=== PATIENT | male | born 2005 | race Caucasian/White ===

== ENCOUNTER 2025-07-01 12:35 | Outpatient (OUT) | payer BC, SELFPAY ==
--- OUTSIDE RECORDS SUMMARY | 2025-06-17 10:40 | XMS_ITS | Encounter Summary ---
Author Organization [facility] Address [address] [facility] [place] [address] Care Team Providers Care Chemical Production Machine Operator Name Role Phone Darron Morse MD Primary Care Provider [phone] Reason for Referral * Imaging (Routine) - AuthorizedSpecialtyDiagnoses / ProceduresReferred By ContactReferred To [facility] Hospital Diagnoses Left upper quadrant abdominal swelling, mass and lump Procedures CT abdomen pelvis wo IV contrast Luz Maria Clements PA [address] [place] [address] Phone: tel: fax: [facility] Centralized Scheduling [address] [place] [address] Phone: tel: fax: Referral IDStatusReasonStart DateExpiration DateVisits RequestedVisits [id number]/6/20255/ Reason for Visit * ReasonCommentsSinus ProblemSinuses stuffy for about a month.Sleep StudyMassOn chest Encounter Details DateTypeDepartmentCare Team (Latest Contact Info)Osubfldxqgg14/06/2025 10:40 AM ESTOffice Visit [facility] [address] [place] [address] Luz Maria Clements PA [address] [place] [address] Left upper quadrant abdominal swelling, mass and lump (Primary Dx); Acute non-recurrent frontal sinusitis; Sleep apnea in adult; Acute frontal sinusitis, recurrence not specified Social History Tobacco UseTypesPacks/DayYears UsedDateSmoking Tobacco: NeverSmokeless Tobacco: NeverAlcohol UseStandard Drinks/WeekCommentsNever0 (1 standard drink = 0.6 oz pure alcohol)Sex and Gender InformationValueDate RecordedSex Assigned at Not on fileLegal WfvVdbf0410/24/2022 7:17 PM EDTGender IdentityNot on fileSexual OrientationNot on filedocumented as of this encounter Last Filed Vital Signs Vital SignReadingTime TakenCommentsBlood Zaiwwhhb189/8411 10:44 AM EST Frsoq1401/06/2025 10:44 AM KHIDzsclatrbmz87.8 ??C (98.2 ??F)06/17/2025 10:44 AM ESTRespiratory Rate--Oxygen Onbswcculr49%06/17/2025 10:44 AM ESTInhaled Oxygen Concentration--Mvzdpv750 kg (265 lb 6.4 oz)06/17/2025 10:44 AM CSWCavhgm363.3 cm (5' 11 )06/17/2025 10:44 AM ESTBody Mass Index37.02108/17/2024 10:44 AM EST documented in this encounter Progress Notes * NOELLE Cole - 06/17/2025 10:40 AM EST Images from the original note were not included. Suleiman Gregory is a 20 y.o. male presents with chief complaint of Sinus Problem (Sinuses stuffy for about a month. ), Sleep Study, and Mass (On chest) HPI: History of Present Illness The patient is a 20-year-old male who presents for evaluation of a sinus infection, follow-up on sleep apnea, and a mass. He has been experiencing symptoms of a sinus infection for approximately 1.5 months. These symptomsinclude nasal congestion and puffiness around the eyes, particularly noticeable in the morning and towards the end of the day. He has attempted to manage these symptoms with Claritin, but it has proven ineffective. He recalls that a previous treatment for a similar condition was highly effective, resolving his symptoms by the third day. He also notes that these symptoms tend to recur around the same time each year, typically in the spring. He has observed a mass under his skin for some time now. Initially, neither his sister nor his girlfriend noticed any difference, but they eventually confirmed the presence of the mass. He is uncertain if it is merely an air pocket. He did not observe this mass during his teenage years. The mass isnot associated with any pain. A referral for a sleep study was placed in 10/2024, but he has not yet received a call from the sleep lab. Occupation: Works at [employer] His sister had a lipoma that turned into another condition. MEDICATIONS: Current Outpatient Medications Medication Instructions azithromycin (Zithromax) 250 MG tablet Take 2 tabs PO x 1 day then 1 tab PO daily x 4 days methylPREDNISolone (Medrol Dospak) 4 MG tablets Follow schedule on package instructions ALLERGIES: Allergies[1] Review of Systems General: Denies fever, chills, fatigue, FOX or weight loss/gain CV: Denies CP, palpitations or swelling in legs Resp: denies cough, SOB or wheezing GI: Denies abd pain/n/v/c/d Skin: Denies rash Neuro: Denies LH or dizziness Medical, Surgical, Family, and Social History reviewed. OBJECTIVE: Visit Vitals BP 128/84 (BP Location: Right arm, Patient Position: Sitting, BP Cuff Size: Large adult) Pulse 90 Temp 98.2 ??F (Temporal) Ht 5' 11 Wt 265 lb 6.4 oz SpO2 99% BMI 37.02 kg/m?? Smoking Status Never BSA 2.45 m?? BP Readings from Last 3 Encounters: 06/17/25 128/84 11/02/24 128/84 Wt Readings from Last 3 Encounters: 06/17/25 265 lb 6.4 oz 11/02/24 236 lb 9.6 oz 06/06/21 234 lb 12.8 oz (>99%, Z= 2.35)* * Growth percentiles are based on CDC (Boys, 2-20 Years) data. Physical Exam Physical Exam Respiratory: Clear to auscultation, no wheezing, rales or rhonchi Cardiovascular: Regular rate and rhythm, no murmurs, rubs, or gallops General: alert & oriented, NAD Head: NC/AT Oral Cavity: MMM Skin: warm, dry Heart: RRR, No m/r/g, S1S2 nml Lungs: CTA b/l Abdomen: soft, ND/NT, BS wnl Musculoskeletal: normal gait Extremities: no clubbing, cyanosis or edema Neurological: nonfocal Psych: mood/affect full range Results ASSESSMENT AND PLAN: Assessment & Plan 1. Sinus infection: - He has been experiencing sinus congestion and puffy eyes for about a month and a half. - Previous treatment with a steroid pack and antibiotic was effective. - A prescription for a steroid pack and an antibiotic will be sent to the pharmacy. 2. Mass: - A soft, non-painful mass has been noted under his skin. - A CAT scan will be ordered at [facility] to further investigate the nature of the mass. - He will be notified of the results once available. 3. Sleep apnea: - A referral for a sleep study was placed in 10/2024, but he has not yet received a call from the sleep lab. - The office will follow up on this referral. - If he does not hear anything within a week, he should call the office. Assessment/Plan Problem List Items Addressed This Visit Acute frontal sinusitis Relevant Medications azithromycin (Zithromax) 250 MG tablet methylPREDNISolone (Medrol Dospak) 4 MG tablets Sleep apnea in adult Left upper quadrant abdominal swelling, mass and lump - Primary Relevant Orders CT abdomen pelvis wo IV contrast Health Maintenance Due Topic Date Due Influenza Vaccine (1) 04/12/2025 COVID-19 Vaccine ( season) 2025 [1] No Known Allergies documented in this encounter Plan of Treatment NameTypePriorityAssociated DiagnosesOrder ScheduleCT abdomen pelvis wo IV contrastImagingRoutine Left upper quadrant abdominal swelling, mass and lump Expected: 06/17/2025, Expires: 06/17/2026documented as of this encounter Visit Diagnoses Diagnosis Left upper quadrant abdominal swelling, mass and lump- Primary Acute frontal sinusitis, recurrence not specified Sleep apnea in adult documented in this encounter Care Teams Team MemberRelationshipSpecialtyStart DateEnd Date Darron Morse MD [address] [place] [address] PCP - GeneralFamily Medicine10/05/24documented as of this encounter
--- OUTSIDE RECORDS SUMMARY | 2025-07-01 12:44 | XMS_ITS | Clinical Summary ---
Author Organization [facility] Healthcare Address [address] [facility] [place] [address] Care Team Providers Care Telegraphic Typewriter Installer Name Role Phone Darron Morse MD Primary Care Provider [phone] Allergies No known active allergies Medications MedicationSigDispense QuantityRefillsLast FilledStart DateEnd DateStatus azithromycin (Zithromax) 250 MG tablet Indications:Acute non-recurrent frontal sinusitisTake 2 tabs PO x 1 day then 1 tab PO daily x 4 days 6 tablet 5Active methylPREDNISolone (Medrol Dospak) 4 MG tablets Indications:Acute non-recurrent frontal sinusitisFollow schedule on package instructions 21 tablet 5Active azithromycin (Zithromax) 250 MG tablet Indications:Acute non-recurrent frontal sinusitisTake 2 tabs PO x 1 day then 1 tab PO daily x 4 days 6 tablet 5108/17/2024Discontinued(Reorder) methylPREDNISolone (Medrol Dospak) 4 MG tablets Indications:Acute non-recurrent frontal sinusitisFollow schedule on package instructions 21 tablet 5108/17/2024Discontinued(Reorder) Active Problems ProblemNoted DateDiagnosed DateLeft upper quadrant abdominal swelling, mass and lump108/17/2024Sleep apnea in adult5Acute frontal dwlxxcjyl34/24/2025 Resolved Problems ProblemNoted DateDiagnosed DateResolved DatePrimary central sleep apnea of zfwkboz61 Encounters DateTypeDepartmentCare WterKvhoogorjwv51/10/2025Telephone [facility] [address] [place] [address] Darron Morse MD Request For Order(s)06/17/2025 10:40 AM ESTOffice Visit [facility] [address] [place] [address] Luz Maria Clements PA Left upper quadrant abdominal swelling, mass and lump (Primary Dx); Acute non-recurrent frontal sinusitis; Sleep apnea in adult; Acute frontal sinusitis, recurrence not brcnacnna30/06/2025amboo flowsheet [facility] [address] [place] [address] Luz Maria Clements PA 06/17/2025Travelfrom Last 3 Months Family History Medical HistoryRelationNameCommentsDiabetesPaternal GrandmotherRelationName StatusCommentsPaternal Grandmother Social History Tobacco UseTypesPacks/DayYears UsedDateSmoking Tobacco: NeverSmokeless Tobacco: Never Tobacco Cessation:Counseling Given: Not Answered Alcohol UseStandard Drinks/WeekCommentsNever0 (1 standard drink = 0.6 oz pure alcohol)Sex and Gender InformationValueDate RecordedSex Assigned at BirthNot on fileLegal EllLfdz4710/24/2022 7:17 PM EDTGender IdentityNot on fileSexual OrientationNot on file Last Filed Vital Signs Vital SignReadingTime TakenCommentsBlood Mapqcizs905/8406/17/2025 10:44 AM EST [place]0520/06/2025 10:44 AM AQKDatxxwzpyhr56.8 ??C (98.2 ??F)06/17/2025 10:44 AM ESTRespiratory Rate--Oxygen Qdpczmdtnf56%06/17/2025 10:44 AM ESTInhaled Oxygen Concentration--Jxaukh986 kg (265 lb 6.4 oz)06/17/2025 10:44 AM XLNBxakqb365.3 cm (5' 11 )06/17/2025 10:44 AM ESTBody Mass Index37.02108/17/2024 10:44 AM EST Plan of Treatment Health MaintenanceDue DateLast DoneCommentsCOVID-19 Vaccine ( season) , 04/13/2021Influenza Vaccine (#1)5109/13/2018, 08/15/2018, 05/25/2017, Additional history existsPneumococcal Vaccine: Pediatrics (0 to 5 Years) and At-Risk Patients (6 to 64 Years)Aged OutNo longer eligible based on patient's age to complete this topic Insurance Care Teams Team MemberRelationshipSpecialtyStart DateEnd Date Darron Morse MD [address] [place] [address] [facility]05/[facility]
--- NOTE | 2025-07-01 12:45 | CT_ITS ---
The [address] [address] Patient Name: KG MILLARD MRN: [id number] date: 2005 Sex: M Assigned Patient Location: CT Current Patient Location: CT Accession/Order Number: [id number] Exam Date: 07/01/2025 13:42 Report Date: 07/01/2025 20:47 At the request of: LAYO SAN Procedure: CT abdomen pelvis wo con CT Abdomen and Pelvis withoutcontrast TECHNIQUE: Axial imaging with 2-D reconstruction. The CT exam was performed using one or more the following dose reduction techniques: Automated exposure control, adjustment of the MA and/or Kv according to patient size, or use of the iterative reconstruction technique. COMPARISON: None History: Left upper quadrant mass. LIMITATIONS: None LOWER THORAX Unremarkable LIVER: Hepatic steatosis GALLBLADDER: No gallbladder abnormality identified. BILE DUCTS: No dilatation SPLEEN: Unremarkable PANCREAS: Unremarkable ADRENAL GLANDS: Calcification of the right adrenal gland. Consider prior injury. KIDNEYS:Medullary nephrocalcinosis. No hydronephrosis. AORTA: No abdominal aortic aneurysm identified. RETROPERITONEUM: No significant retroperitoneal abnormalities identified. MESENTERY:Unremarkable STOMACH:Unremarkable SMALL BOWEL: The small bowel loops are nondistended. APPENDIX: The appendix is normal. COLON: Unremarkable URINARY BLADDER: Urinary bladder is unremarkable. REPRODUCTIVE SYSTEM: Reproductive structures are unremarkable. PNEUMOPERITONEUM: None PERITONEAL FLUID:None BONY STRUCTURES: Unremarkable ABDOMINAL WALL: Marker placed in the left upper anterior abdominal wall. No underlying mass or fluid collection. CT/CT abdomen pelvis wo con IMPRESSION: No abdominal wall mass or fluid collection. Hepatic steatosis. Medullary nephrocalcinosis. No hydronephrosis. Impression dictated by: Paulino Ramirez M.D. 07/01/2025 8:47 PM Dictation Location: [employer] Electronically authenticated by: [id number] Y Date: 07/01/2025 20:47
--- OUTSIDE RECORDS SUMMARY | 2025-07-01 12:46 | XMS_ITS | Encounter Summary ---
Author Organization [facility] Healthcare Address [address] [facility] [place] [address] Care Team Providers Care Train Caller Name Role Phone Darron Morse MD Primary Care Provider [phone] Reason for Visit * ReasonOnset DateCommentsRequest For Order(s)06/21/2025 Encounter Details DateTypeDepartmentCare Team (Latest Contact Info)Ezxkphzjxqp44/10/2025Telephone [facility] [address] [place] [phone] Darron Morse MD [address] [place] [address] Request For Order(s) Social History Tobacco UseTypesPacks/DayYears UsedDateSmoking Tobacco: NeverSmokeless Tobacco: NeverAlcohol UseStandard Drinks/WeekCommentsNever0 (1 standard drink = 0.6 oz pure alcohol)Sex and Gender InformationValueDate RecordedSex Assigned at Not on fileLegal YuoHnyq2010/24/2022 7:17 PM EDTGender IdentityNot on fileSexual OrientationNot on filedocumented as of this encounter Miscellaneous Notes * Telephone Encounter - Amberly Gates - 06/21/2025 10:20 AM EST Patient called and said he was in last week and is said he had a cat scan sent over to [facility] in [place] but he is wondering if it can be sent over to the hospital in [place]. Please advise. Thank you! documented in this encounter Plan of Treatment Not on file documented as of this encounter Visit Diagnoses Not on filedocumented in this encounter Care Teams Team MemberRelationshipSpecialtyStart DateEnd Date Darron Morse MD [address] [place] [address] PCP - GeneralFamily Medicine10/05/24documented as of this encounter
--- OUTSIDE RECORDS SUMMARY | 2025-07-01 12:47 | XMS_ITS | Encounter Summary ---
Author Organization [facility] Address [address] [facility] [place] [address] Care Team Providers Care I O Psychologist Name Role Phone Darron Morse MD Primary Care Provider [phone] Encounter Details DateTypeDepartmentCare Team (Latest Contact Info)Zqtprakohwn87/06/2025Bamboo flowsheet [facility] [address] [place] [phone] Luz Maria Clements, PA [address] [place] [address] Social History Tobacco UseTypesPacks/DayYears UsedDateSmoking Tobacco: NeverSmokeless Tobacco: NeverAlcohol UseStandard Drinks/WeekCommentsNever0 (1 standard drink = 0.6 oz pure alcohol)Sex and Gender InformationValueDate RecordedSex Assigned at Not on fileLegal IvqIypk1010/24/2022 7:17 PM EDTGender IdentityNot on fileSexual OrientationNot on filedocumented as of this encounter Plan of Treatment Not on file documented as of this encounter Visit Diagnoses Not on filedocumented in this encounter Care Teams Team MemberRelationshipSpecialtyStart DateEnd Date Darron Morse MD [address] [place], [place] [id number] PCP - GeneralFamily Medicine10/05/24documented as of this encounter
--- OUTSIDE RECORDS SUMMARY | 2025-07-01 12:47 | XMS_ITS | Encounter Summary ---
Author Organization [facility] Healthcare Address [address] [facility] [place] [address] Care Team Providers Care Sub Acute Care Nurse Name Role Phone Darron Morse MD Primary Care Provider Encounter Details DateTypeDepartmentCare Team (Latest Contact Info)Kdpgbooafad31/06/2025Travel Social History Tobacco UseTypesPacks/DayYears UsedDateSmoking Tobacco: NeverSmokeless Tobacco: NeverAlcohol UseStandard Drinks/WeekCommentsNever0 (1 standard drink = 0.6 oz pure alcohol)Sex and Gender InformationValueDate RecordedSex Assigned at Not on fileLegal ZhcVigk4110/24/2022 7:17 PM EDTGender IdentityNot on fileSexual OrientationNot on filedocumented as of this encounter Plan of Treatment Not on file documented as of this encounter Visit Diagnoses Not on filedocumented in this encounter Care Teams Team MemberRelationshipSpecialtyStart DateEnd Date Darron Morse MD [address] [place] [address] PCP - GeneralFamily Medicine10/05/24documented as of this encounter
== END 2025-07-01 12:36 | disposition home or self-care (01) ==
LOC: CT 12:41
PROVIDERS: PCP Physician Assistant; Visit Provider Physician Assistant
DX: R19.02 Left upper quadrant abdominal swelling, mass and lump (principal); K76.0 Fatty (change of) liver, not elsewhere classified; E83.59 Other disorders of calcium metabolism; N29 Other disorders of kidney and ureter in diseases classified elsewhere
CPT/HCPCS: 74176